=== PATIENT | female | born 1935 | race African-American/Black ===

== ENCOUNTER → 2016-04-12 | Outpatient (CLI) | payer OTHER ==
[~2016-04-12] MED LIST: 8 HOUR C500 MG PO; ACIDOPHILUS-PE1 EACH; ACIDOPHILUS1 EAC3 PO; ADULT LOW DOSE81 MG PO; ALLEGRA60 MG PO; AMLODIPINE BESY10 MG PO; APAP500; APAP500 PO; ASPIR-LOW81 MG PO; CATHFLO ACT2 MG/VIAL IV; CEPACOL SORE T1 EAC7 PO; CIPRO500 M1 PO; CIPRO500 MG PO; CLEOCIN HCL150 MG PO; CLOBETASOL EMOL15 GM TP; CLOPIDOGREL75 MG PO; CLOTRIMAZOLE 1%15 G1 TOP; CLOTRIMAZOLE-BE15 GM; COLACE 100 MG100 MG PO; COLACE100 MG PO; COZAAR 25 MG TA25 M1 PO; DARVOCET-N 1001 EACH PO; DOXYCYCLINE 10100 MG PO; DULCOLAX5 MG PO; DUONEB 2.5-0.5 M3 ML INH; FENTANYL PATCH75 MCG TP; FERRO-TIME325 MG PO; FLAGYL500 MG PO; FOLBIC RF TABL1 EACH PO; FOLIC ACID 40400 MCG; FOLIC ACID0.4 MG PO; FOLIC ACID1 MG PO; FUROSEMIDE 40 M40 M1 PO; GENTAMICIN 0.1%15 G2 TOP; GLEEVEC400 MG PO; IRON325 PO; KLOR-CON 1010 MEQ; KLOR-CON 1010 MEQ PO; LASIX 40 MG TAB40 M2 PO; LEVOTHYROXINE0.05 MG PO; LIDODERM 5%1 PATC1 TRANSDERM; LORATIDINE 10 M10 M1 PO; MIRALAX17 G1 PO; MUCINEX TA600 MG/TA1 PO; MULTIVITAMINS1 EAC5 PO; OMEGA XL; OPTIVE EYE DROP30 ML OP; OXYCODONE HCL 55 MG PO; PERCOCET PO; PLAVIX 75 MG TA75 M1 PO; PRAVACHOL20 MG PO; PRAVACHOL40 MG PO; PROBIOTIC1 EAC1 PO; PROCRIT 1010000 U/M1 SUBQ; ROBITUSSIN100 MG/53 PO; SANTYL OINTMENT30 G1 TOP; VANCOMYCIN750 MG/150 IV; VITAMIN B-122500 MCG PO; VITAMIN B-12500 MCG; VITAMIN B-12500 MCG PO; VITAMIN D1000 UNI1 PO; VITAMIN E400 UNIT PO; VITAMINC500; VOLTAREN GEL 1100 G1 TOP; ZINC CHELATE50 MG PO; ZINC OXIDE60 GM TP; ZINC50 MG; ZOSYN 2.25 GR2.25 GM IV
== END ==
LOC: HYPER 07:04
DX: I87.313 Chronic venous hypertension (idiopathic) with ulcer of bilateral lower extremity (principal); L97.811 Non-pressure chronic ulcer of other part of right lower leg limited to breakdown of skin; L97.822 Non-pressure chronic ulcer of other part of left lower leg with fat layer exposed; E11.51 Type 2 diabetes mellitus with diabetic peripheral angiopathy without gangrene; I87.2 Venous insufficiency (chronic) (peripheral); I10 Essential (primary) hypertension; Z87.891 Personal history of nicotine dependence; Z72.89 Other problems related to lifestyle

== ENCOUNTER → 2016-04-28 | Outpatient (CLI) | payer OTHER ==
[~2016-04-28] VITALS: Ht 167.6 cm; Wt 79.4 kg
--- NOTE | ~2016-04-28 | HPC ---
[facility] [place] [address] PAIN MANAGEMENT CONSULTATION Name: BARRETT MORILLO [id number] Admission: 04/28/16 Attend Phys: Arun Diaz DO Discharge: Date of : 34 Report #: [id number] THIS REPORT FOR: //name// CC: Garrett Diaz The patient is an 81-year-old female seen in consultation at request of Dr. Garrett La for evaluation of pain primarily in the right shoulder. The patient notes pain has been present since last summer. She denies antecedent trauma and overuse, has an aching, steady sensation, 0 pain today, though gets up to 7 occasionally. She notes she had fallen several years ago striking her right hand with compression on her shoulder. She may have had a fracture in the right wrist that was untreated. She does have pain in the wrist, but her primary point tenderness is in the right shoulder. She notes it seems to be exacerbated when she lies on the shoulder. She has limited range of motion in the shoulder, but no neuropathic symptoms are noted. Currently, the patient is taking some Percocet for pain, using a Lidoderm patch topically with some efficacy. REVIEW OF SYSTEMS: Complete review of systems was gone over with the patient. History dyslipidemia for which she takes pravastatin, hypertension for which she takes amlodipine and Lasix, hypothyroid for which she takes levothyroxine. Had colon resection in 2004 for a noncancerous lesion. PHYSICAL EXAMINATION: GENERAL: Reveals a 167 cm, 79 kg female, BMI is 28.3 kilograms per meter squared. VITAL SIGNS: Blood pressure is 149/60, pulse 77, respirations 16. NEUROLOGIC: Cranial 2-12 are grossly intact. HEENT: Pupils equal and reactive to light and accommodation. Extraocular muscles are intact. NECK: Cervical range of motion is full. MUSCULOSKELETAL: Upper extremity strength shows significant decrease in her right arm abduction perhaps about 45 to 50 degrees. Left arm is good to 90 degrees. Passive rotation of the arm is unremarkable. It does not appear to be a primary shoulder joint related. She is very tender over the right deltoid and trapezius. The right distal ulna does show some osseous hypertrophy and she has decreased range of motion of right thumb with thenar eminence atrophy. HEART: Regular rhythmical without murmur. LUNGS: Clear to auscultation. ABDOMEN: Unremarkable. EXTREMITIES: Gait is tandem. Lower extremity strength is generally symmetric. DIAGNOSTIC STUDIES: There are no radiographic diagnostic studies available for evaluation at this time. [address] [address] PAIN MANAGEMENT CONSULTATION Name: BARRETT MORILLO Room #: REG [facility]#: [id number] Admission: 04/28/16 Attend Phys: Arun Diaz DO Discharge: Date of : 34 Report #: [id number] IMPRESSION: Myofascial pain, right trapezius and deltoid, possible component of degenerative joint disease, right shoulder and the patient's comorbidities include hypertension and some chronic axial back pain. RECOMMENDATION: I will be happy to see the patient as needed for trigger point injections in the right trapezius and deltoid, although presently she is doing fairly well and does not require any interventional therapy at this time. Thank you for allowing me to participate in the patient's care. We will see her simply as needed. <ELECTRONICALLY SIGNED> By: Arun Diaz DO 05/01/16 1228 1629 0313 Arun Diaz DO /nt
[2016-04-28 11:26] VITALS: BP 149/60
== END | disposition home or self-care (01) ==
LOC: PAIN 04-24 07:07
DX: M79.1 Myalgia (principal); I10 Essential (primary) hypertension; E78.5 Hyperlipidemia, unspecified; E03.9 Hypothyroidism, unspecified; M54.9 Dorsalgia, unspecified; G89.29 Other chronic pain; Z90.49 Acquired absence of other specified parts of digestive tract; D50.9 Iron deficiency anemia, unspecified

== ENCOUNTER → 2016-07-19 | Outpatient (CLI) | payer OTHER | LOC: HYPER 07-04 15:18 | DX: I87.313 Chronic venous hypertension (idiopathic) with ulcer of bilateral lower extremity (principal); L97.811 Non-pressure chronic ulcer of other part of right lower leg limited to breakdown of skin; L97.822 Non-pressure chronic ulcer of other part of left lower leg with fat layer exposed; E11.622 Type 2 diabetes mellitus with other skin ulcer; E11.51 Type 2 diabetes mellitus with diabetic peripheral angiopathy without gangrene; E11.22 Type 2 diabetes mellitus with diabetic chronic kidney disease; I12.9 Hypertensive chronic kidney disease with stage 1 through stage 4 chronic kidney disease, or unspecified chronic kidney disease; N18.9 Chronic kidney disease, unspecified; I48.91 Unspecified atrial fibrillation; Z87.891 Personal history of nicotine dependence; Z72.89 Other problems related to lifestyle ==

== ENCOUNTER → 2016-08-09 | Outpatient (CLI) | payer OTHER | LOC: HYPER 07:05 | DX: I87.313 Chronic venous hypertension (idiopathic) with ulcer of bilateral lower extremity (principal); E11.622 Type 2 diabetes mellitus with other skin ulcer; L97.311 Non-pressure chronic ulcer of right ankle limited to breakdown of skin; L97.321 Non-pressure chronic ulcer of left ankle limited to breakdown of skin; E11.51 Type 2 diabetes mellitus with diabetic peripheral angiopathy without gangrene; R60.9 Edema, unspecified; B95.62 Methicillin resistant Staphylococcus aureus infection as the cause of diseases classified elsewhere; E11.69 Type 2 diabetes mellitus with other specified complication; M86.679 Other chronic osteomyelitis, unspecified ankle and foot; I12.9 Hypertensive chronic kidney disease with stage 1 through stage 4 chronic kidney disease, or unspecified chronic kidney disease; E11.22 Type 2 diabetes mellitus with diabetic chronic kidney disease; N18.9 Chronic kidney disease, unspecified; I48.91 Unspecified atrial fibrillation; F15.90 Other stimulant use, unspecified, uncomplicated; Z72.89 Other problems related to lifestyle; Z87.891 Personal history of nicotine dependence ==

== ENCOUNTER → 2016-09-04 | Outpatient (CLI) | payer OTHER | LOC: HYPER 07:08 | DX: I87.313 Chronic venous hypertension (idiopathic) with ulcer of bilateral lower extremity (principal); E11.622 Type 2 diabetes mellitus with other skin ulcer; L97.321 Non-pressure chronic ulcer of left ankle limited to breakdown of skin; L97.311 Non-pressure chronic ulcer of right ankle limited to breakdown of skin; I73.9 Peripheral vascular disease, unspecified; R60.9 Edema, unspecified; B95.62 Methicillin resistant Staphylococcus aureus infection as the cause of diseases classified elsewhere; E11.51 Type 2 diabetes mellitus with diabetic peripheral angiopathy without gangrene; E11.69 Type 2 diabetes mellitus with other specified complication; M86.8X7 Other osteomyelitis, ankle and foot; E11.22 Type 2 diabetes mellitus with diabetic chronic kidney disease; I12.9 Hypertensive chronic kidney disease with stage 1 through stage 4 chronic kidney disease, or unspecified chronic kidney disease; N18.9 Chronic kidney disease, unspecified; I48.91 Unspecified atrial fibrillation; Z87.891 Personal history of nicotine dependence; Z72.89 Other problems related to lifestyle ==

== ENCOUNTER → 2016-09-19 | Outpatient (CLI) | payer OTHER | LOC: HYPER 07:10 | DX: I87.313 Chronic venous hypertension (idiopathic) with ulcer of bilateral lower extremity (principal); L97.311 Non-pressure chronic ulcer of right ankle limited to breakdown of skin; L97.321 Non-pressure chronic ulcer of left ankle limited to breakdown of skin; E11.51 Type 2 diabetes mellitus with diabetic peripheral angiopathy without gangrene; I48.91 Unspecified atrial fibrillation; E11.22 Type 2 diabetes mellitus with diabetic chronic kidney disease; I12.9 Hypertensive chronic kidney disease with stage 1 through stage 4 chronic kidney disease, or unspecified chronic kidney disease; N18.9 Chronic kidney disease, unspecified; Z87.891 Personal history of nicotine dependence; Z86.14 Personal history of Methicillin resistant Staphylococcus aureus infection; Z72.89 Other problems related to lifestyle ==

== ENCOUNTER → 2016-11-02 | Outpatient (CLI) | payer OTHER | LOC: HYPER 10-09 06:58 | DX: I87.313 Chronic venous hypertension (idiopathic) with ulcer of bilateral lower extremity (principal); E11.622 Type 2 diabetes mellitus with other skin ulcer; L97.811 Non-pressure chronic ulcer of other part of right lower leg limited to breakdown of skin; L97.822 Non-pressure chronic ulcer of other part of left lower leg with fat layer exposed; E11.51 Type 2 diabetes mellitus with diabetic peripheral angiopathy without gangrene; R60.9 Edema, unspecified; B95.62 Methicillin resistant Staphylococcus aureus infection as the cause of diseases classified elsewhere; E11.69 Type 2 diabetes mellitus with other specified complication; M86.8X7 Other osteomyelitis, ankle and foot; I48.91 Unspecified atrial fibrillation; E11.22 Type 2 diabetes mellitus with diabetic chronic kidney disease; I12.9 Hypertensive chronic kidney disease with stage 1 through stage 4 chronic kidney disease, or unspecified chronic kidney disease; N18.9 Chronic kidney disease, unspecified; Z87.891 Personal history of nicotine dependence; Z72.89 Other problems related to lifestyle ==

== ENCOUNTER → 2016-11-21 | Outpatient (CLI) | payer OTHER | LOC: HYPER 07:05 | DX: I87.313 Chronic venous hypertension (idiopathic) with ulcer of bilateral lower extremity (principal); E11.622 Type 2 diabetes mellitus with other skin ulcer; L97.811 Non-pressure chronic ulcer of other part of right lower leg limited to breakdown of skin; L97.821 Non-pressure chronic ulcer of other part of left lower leg limited to breakdown of skin; E11.51 Type 2 diabetes mellitus with diabetic peripheral angiopathy without gangrene; R60.9 Edema, unspecified; B95.62 Methicillin resistant Staphylococcus aureus infection as the cause of diseases classified elsewhere; M86.8X7 Other osteomyelitis, ankle and foot; E11.22 Type 2 diabetes mellitus with diabetic chronic kidney disease; I12.9 Hypertensive chronic kidney disease with stage 1 through stage 4 chronic kidney disease, or unspecified chronic kidney disease; N18.9 Chronic kidney disease, unspecified; I48.91 Unspecified atrial fibrillation; Z87.891 Personal history of nicotine dependence; Z72.89 Other problems related to lifestyle ==

== ENCOUNTER → 2016-12-19 | Outpatient (CLI) | payer OTHER | LOC: HYPER 12-05 07:25 | DX: I87.313 Chronic venous hypertension (idiopathic) with ulcer of bilateral lower extremity (principal); E11.622 Type 2 diabetes mellitus with other skin ulcer; L97.821 Non-pressure chronic ulcer of other part of left lower leg limited to breakdown of skin; L97.822 Non-pressure chronic ulcer of other part of left lower leg with fat layer exposed; E11.51 Type 2 diabetes mellitus with diabetic peripheral angiopathy without gangrene; R60.9 Edema, unspecified; B95.62 Methicillin resistant Staphylococcus aureus infection as the cause of diseases classified elsewhere; Z87.891 Personal history of nicotine dependence; Z72.89 Other problems related to lifestyle ==

== ENCOUNTER → 2017-02-12 | Outpatient (CLI) | payer OTHER | LOC: HYPER 07:38 | DX: I87.313 Chronic venous hypertension (idiopathic) with ulcer of bilateral lower extremity (principal); L97.312 Non-pressure chronic ulcer of right ankle with fat layer exposed; L97.822 Non-pressure chronic ulcer of other part of left lower leg with fat layer exposed; L97.811 Non-pressure chronic ulcer of other part of right lower leg limited to breakdown of skin; E11.622 Type 2 diabetes mellitus with other skin ulcer; B95.62 Methicillin resistant Staphylococcus aureus infection as the cause of diseases classified elsewhere; E11.51 Type 2 diabetes mellitus with diabetic peripheral angiopathy without gangrene; E11.22 Type 2 diabetes mellitus with diabetic chronic kidney disease; I12.9 Hypertensive chronic kidney disease with stage 1 through stage 4 chronic kidney disease, or unspecified chronic kidney disease; N18.9 Chronic kidney disease, unspecified; I48.91 Unspecified atrial fibrillation; Z87.891 Personal history of nicotine dependence; Z72.89 Other problems related to lifestyle ==

== ENCOUNTER → 2017-03-27 | Outpatient (CLI) | payer OTHER | LOC: HYPER 07:09 | DX: I87.313 Chronic venous hypertension (idiopathic) with ulcer of bilateral lower extremity (principal); L97.312 Non-pressure chronic ulcer of right ankle with fat layer exposed; L97.322 Non-pressure chronic ulcer of left ankle with fat layer exposed; L97.522 Non-pressure chronic ulcer of other part of left foot with fat layer exposed; I73.9 Peripheral vascular disease, unspecified; E11.622 Type 2 diabetes mellitus with other skin ulcer; E11.621 Type 2 diabetes mellitus with foot ulcer; E11.69 Type 2 diabetes mellitus with other specified complication; M86.679 Other chronic osteomyelitis, unspecified ankle and foot; E11.22 Type 2 diabetes mellitus with diabetic chronic kidney disease; I12.9 Hypertensive chronic kidney disease with stage 1 through stage 4 chronic kidney disease, or unspecified chronic kidney disease; N18.9 Chronic kidney disease, unspecified; I48.91 Unspecified atrial fibrillation; Z87.891 Personal history of nicotine dependence; Z72.89 Other problems related to lifestyle ==

== ENCOUNTER → 2017-04-17 | Outpatient (CLI) | payer OTHER ==
[~2017-04-17] MED LIST changes: +CALCIUM500 MG PO; +ENOXAPARIN30 MG/0.1 SUBQ; +HYDROCODONE-AP1 EAC6 PO; +LASIX 20 MG TAB20 MG PO; +NOVOLOG100 UNIT/1 SUBQ; +PREDNISONE 20 M20 M1 PO; +SOLU-MEDRO125 MG/23 IV PUSH; +SYNTHROID50 MCG PO; +TORSEMIDE20 MG PO; +TRAMADOL 50 MG50 MG PO; +TYLENOL EXTRA500 MG PO; +VANCOMYCIN HCL 11 G2 IV
== END ==
LOC: HYPER 04-12 06:39
DX: I87.313 Chronic venous hypertension (idiopathic) with ulcer of bilateral lower extremity (principal); L97.312 Non-pressure chronic ulcer of right ankle with fat layer exposed; L97.322 Non-pressure chronic ulcer of left ankle with fat layer exposed; L97.522 Non-pressure chronic ulcer of other part of left foot with fat layer exposed; E11.622 Type 2 diabetes mellitus with other skin ulcer; E11.621 Type 2 diabetes mellitus with foot ulcer; E11.51 Type 2 diabetes mellitus with diabetic peripheral angiopathy without gangrene; E11.69 Type 2 diabetes mellitus with other specified complication; M86.679 Other chronic osteomyelitis, unspecified ankle and foot; E11.22 Type 2 diabetes mellitus with diabetic chronic kidney disease; I12.9 Hypertensive chronic kidney disease with stage 1 through stage 4 chronic kidney disease, or unspecified chronic kidney disease; N18.9 Chronic kidney disease, unspecified; I48.91 Unspecified atrial fibrillation; Z87.891 Personal history of nicotine dependence; Z72.89 Other problems related to lifestyle

== ENCOUNTER → 2017-05-09 | Outpatient (CLI) | payer OTHER | LOC: HYPER 05-02 06:48 | DX: E11.622 Type 2 diabetes mellitus with other skin ulcer (principal); I87.313 Chronic venous hypertension (idiopathic) with ulcer of bilateral lower extremity; L97.822 Non-pressure chronic ulcer of other part of left lower leg with fat layer exposed; L97.312 Non-pressure chronic ulcer of right ankle with fat layer exposed; L97.321 Non-pressure chronic ulcer of left ankle limited to breakdown of skin; E11.621 Type 2 diabetes mellitus with foot ulcer; L97.521 Non-pressure chronic ulcer of other part of left foot limited to breakdown of skin; E11.51 Type 2 diabetes mellitus with diabetic peripheral angiopathy without gangrene; E11.22 Type 2 diabetes mellitus with diabetic chronic kidney disease; I12.9 Hypertensive chronic kidney disease with stage 1 through stage 4 chronic kidney disease, or unspecified chronic kidney disease; N18.9 Chronic kidney disease, unspecified; Z87.891 Personal history of nicotine dependence; Z72.89 Other problems related to lifestyle ==

== ENCOUNTER → 2017-06-06 | Outpatient (CLI) | payer OTHER | LOC: HYPER 06:59 | DX: E11.622 Type 2 diabetes mellitus with other skin ulcer (principal); L97.321 Non-pressure chronic ulcer of left ankle limited to breakdown of skin; L97.312 Non-pressure chronic ulcer of right ankle with fat layer exposed; L97.822 Non-pressure chronic ulcer of other part of left lower leg with fat layer exposed; I87.313 Chronic venous hypertension (idiopathic) with ulcer of bilateral lower extremity; E11.51 Type 2 diabetes mellitus with diabetic peripheral angiopathy without gangrene; I87.2 Venous insufficiency (chronic) (peripheral); I12.9 Hypertensive chronic kidney disease with stage 1 through stage 4 chronic kidney disease, or unspecified chronic kidney disease; N18.9 Chronic kidney disease, unspecified; I48.91 Unspecified atrial fibrillation; Z87.891 Personal history of nicotine dependence; Z72.89 Other problems related to lifestyle ==

== ENCOUNTER 2017-06-12 15:12 | Inpatient (IN) | payer OTHER ==
[~2017-06-12] VITALS: Ht 167.6 cm; Wt 77.7 kg
--- NOTE | ~2017-06-12 | O ---
[facility] [place] [address] OPERATIVE REPORT Name: BARRETT MORILLO Room #: 442-P [facility] IN .R.#: [id number] Admission: 06/12/17 Attend Phys: Garrett La MD Discharge: Date of : 34 Report #: [id number] THIS REPORT FOR: //name// CC: Garrett La DATE OF SERVICE: 06/22/2017 PREOPERATIVE DIAGNOSES: 1. Chronic bilateral lower extremity venous stasis ulcerations. 2. Severe peripheral vascular disease. 3. Diabetes mellitus. 4. Severe protein calorie malnutrition. 5. Generalized debility. POSTOPERATIVE DIAGNOSES: 1. Chronic bilateral lower extremity venous stasis ulcerations. 2. Severe peripheral vascular disease. 3. Diabetes mellitus. 4. Severe protein calorie malnutrition. 5. Generalized debility. PROCEDURES PERFORMED: 1. Excisional debridement of skin, subcutaneous tissue, muscle and bone of the left lower extremity, chronic venous stasis ulceration ultimately measuring 22 x 18 cm in dimension (396 square centimeters). Preoperative and postoperative wound measurements were similar as the overall dimensions of the wound did not change substantially. 2. Excisional debridement of skin, subcutaneous tissue, muscle and bone of a right lower extremity chronic venous stasis ulceration ultimately measuring 20 x 19 cm in dimension (380 square centimeters). Preoperative wound measurements were similar as the overall dimensions of the wound did not change substantially. 3. Total surface area of debrided wounds all to bone equals 776 square centimeters. 4. Application of an extracellular matrix tissue grafting to the bilateral lower extremity wounds, totaling 776 square centimeters. SURGEON: Tracie Cook MD TIME CLOCK REPAIRER: JAMES Jones. ANESTHESIA: General endotracheal anesthesia. ESTIMATED BLOOD LOSS: Minimal (less than 10 mL). COMPLICATIONS: None appreciated. [facility] [address] [place] [address] OPERATIVE REPORT Name: BARRETT MORILLO Room #: 442-P [facility] IN ..#: [id number] Admission: 06/12/17 Attend Phys: Garrett La MD Discharge: Date of : 34 Report #: [id number] SPECIMENS: All excised tissue to pathology. INDICATIONS: The patient is an 82-year-old -[place] female with the above-mentioned medical issues, who has dealt with chronic venous stasis ulcerations of the bilateral lower extremities for several years. The patient was admitted for worsening pain and erythema with exudative slough due to early cellulitis and after appropriate elevation of her legs and IV antibiotic therapy, we proceeded with debridement of her lower extremity wounds 1 week ago utilizing [employer] ultrasonic debridement tool. The patient's wounds have been undergoing aggressive local wound care and she has been on antibiotic therapy this time; however, she did develop worsening congestive heart failure for which she has been undergoing aggressive diuresis and cardiology evaluation. The patient has now been cleared by primary care physician as well as Cardiology to proceed back with repeat debridement to remove all remaining exudative slough and biofilm and to proceed forward with application of an extracellular matrix tissue grafting to the bilateral lower extremity wounds to hopefully attain long-term wound healing of these chronic ulcerations. DESCRIPTION OF PROCEDURE: After explaining the risks, benefits, alternatives of the procedure with the patient in detail in the preoperative holding area and obtaining written consent, the patient was brought to the operating room and placed supine on the operating room table. After conducting a thorough timeout procedure, verifying correct patient and procedure, the patient was given general endotracheal anesthesia. No SCDs were utilized as her wounds are of the bilateral lower extremities in nature. The patient is already on an inpatient regimen of IV antibiotic therapy, which is all in line with the SCIP protocol. The patient's bilateral lower extremities were now prepped and draped circumferentially in standard surgical sterile fashion from the mid thigh to the toes. A combination of electrocautery and [employer] ultrasonic debridement tool was now used to remove all remaining exudative slough and biofilm throughout the bed of each lower extremity wound. All nonviable tissue was removed down to healthy vascularized granulation tissue throughout the bed of each wound that bled. Pressure was held on each wound, so as not to use electrocautery for hemostasis and after 10 minutes, we had complete hemostasis with a beefy red raw, soupy wound bed as desired. Measurements were as delineated above. I now selected [employer] extracellular tissue grafting using four pieces of 8 x 8 cm and 1 piece of 6 x 6 cm mesh to amalgamate together and construct total surface area coverage of 776 square cm overlying the entirety of each wound. These were placed in piecemeal fashion and stapled to the surrounding dermis as well as using several sutures of 3-0 Vicryl throughout the innermost portion of the meshes to hold them in close approximation with the wound bed throughout. Hemostasis was assured and then Adaptic nonadherent dressings were placed over each of the grafts and stapled to the surrounding skin as well. Xeroform gauze was then placed over the Adaptic and light fluffs and ABDs were placed as well as a circumferential Kerlix wrap placed loosely around from the toes to the [facility] [address] [place] [address] OPERATIVE REPORT Name: BARRETT MORILLO Room #: 442-P [facility] IN M.R.#: [id number] Admission: 06/12/17 Attend Phys: Garrett La MD Discharge: Date of : 34 Report #: [id number] knee. At the end of the procedure, all instrument, needle and sponge counts were correct. The patient tolerated the procedure without incident, was awakened in the operating room and transitioned to the recovery room in stable condition with no apparent complications. <ELECTRONICALLY SIGNED> By: Tracie Cook MD, FACS 06/23/17 0837 1608 1639 Tracie Cook MD, FACS /nt
--- NOTE | ~2017-06-12 | HC ---
[facility] [place] [address] CONSULTATION Name: BARRETT MORILLO Room #: 442-P ADM IN M.R.#: [id number] Admission: 06/12/17 Attend Phys: Garrett La MD Discharge: Date of : 34 Report #: [id number] THIS REPORT FOR: //name// CC: Garrett La REASON FOR CONSULTATION: I was asked to evaluate concerning bilateral lower extremity venous stasis ulcers with secondary infection. HISTORY OF PRESENT ILLNESS: The patient is an 82-year-old with longstanding peripheral vascular disease, diabetes and renal insufficiency. She has had chronic lower extremity ulcers for several years. She presents now for further evaluation and surgical intervention. She has had no fever, chills or sweats. Pain is reasonably controlled. She has been utilizing compression wraps. She was admitted yesterday and placed on IV antibiotic therapy including Zosyn. REVIEW OF SYSTEMS: Notes no cough or sputum production. No nausea, vomiting or diarrhea. No dysuria or frequency. 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 ALLERGIES: Reports PENICILLIN causes itching, but tolerates Zosyn without issue. MEDICATIONS: As noted on her MAR, which were reviewed. FAMILY HISTORY AND SOCIAL HISTORY: Noncontributory. REVIEW OF SYSTEMS: As noted above. PHYSICAL EXAMINATION: VITAL SIGNS: Afebrile and hemodynamically stable. GENERAL: She was alert and cooperative and pleasant with no acute distress. HEENT: Unremarkable. CHEST: Clear. HEART: Regular. ABDOMEN: Soft and nontender. No appreciable mass. EXTREMITIES: Lower extremities were TONNY wrapped. They have just been changed by Wound Care Service. She does have chronic venous stasis changes evident in her feet. Chronic lymphedema changes as well. Sensation in her toes was adequate. LABORATORY STUDIES: Sodium 143, potassium 4, bicarbonate 21, creatinine 2.2. Liver function test normal. Hemoglobin 8.7, platelet count 320,000, white count [address] [address] CONSULTATION Name: BARRETT MORILLO Room #: 442-P ADM IN .R.#: [id number] Admission: 06/12/17 Attend Phys: Garrett La MD Discharge: Date of : 34 Report #: [id number] 6.9. Urinalysis unremarkable. Chest x-ray, basilar atelectasis. IMPRESSION: Chronic venous stasis and arterial insufficiency ulcers to both lower extremities with secondary infection. She is scheduled to have surgery hopefully tomorrow for further debridement and cultures. PLAN: Would recommend continuing her antibiotic coverage with Zosyn. We will screen for MRSA. We will adjust her antibiotics for her renal insufficiency and await surgical findings and determine plan of care as far as wound care. <ELECTRONICALLY SIGNED> By: Valdez Mark MD 06/14/17 0928 1443 1838 Valdez Mark MD /nt
--- NOTE | ~2017-06-12 | H ---
[facility] [place] [address] HISTORY AND PHYSICAL Name: BARRETT MORILLO Room #: 442-P ADM IN M.R.#: [id number] Admission: 06/12/17 Attend Phys: Garrett La MD Discharge: Date of : 34 Report #: [id number] THIS REPORT FOR: //name// CC: Garrett La DATE OF SERVICE: 06/12/2017 CHIEF COMPLAINT: Chronically infected ulcer wounds of both legs. HISTORY OF PRESENT ILLNESS: The patient has had chronically infected circumferential ulcers of both lower legs for many years. Currently, they have been suppurative and chronically infected and have not been healing. Her entry specialists, Dr. Mark Queen feels that they would benefit from extensive debridement in the operating room under anesthesia with the placement of an extracellular matrix graft to improve wound healing. She has been admitted for intravenous antibiotics before this procedure is done, and the procedure has been scheduled for tomorrow. PAST MEDICAL HISTORY: Significant for extensive chronic venous stasis ulcers of both lower extremities. She also has peripheral vascular disease to the lower extremities. She has had prior MRSA infections in her legs as well as Enterococcus faecalis, Pseudomonas, and several other infections. She chronically attends the [facility]. Her last hospital stay was in 05/2015 for sepsis with fever and chills with marked bandemia caused by her leg ulcers. She was transferred to [facility] to finish antibiotics and to continue with lavage of her legs. She was previously admitted 01/19/2015 to 01/27/2015. OTHER PAST MEDICAL HISTORY: She has chronic profound iron deficiency anemia and takes iron. An EGD and colonoscopy were performed for bleeding sources and were negative. She has moderately severe left-sided diverticulosis coli and an old PEG tube site in the stomach was found as well as [id number] hiatal hernia. She has a GIST tumor that has been treated by Dr. Ivan Roldan in [facility]. There is a change in the community agency that provided transportation for her to cross the state line from [place] to Dr. Roldan's office in [place], which subsequently no longer provided that service for her. She has not taken her medication for the GIST tumor for about the past [address] Kenneth Cramer, also at the [facility], did extend an appointment for her at his office on but she canceled and never did actually make an appointment. 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 She has chronic B12 deficiency, anemia of chronic disease with low erythropoietin level, hypertension, hyperlipidemia, poor venous access. [facility] [address] [place] [address] HISTORY AND PHYSICAL Name: YISELBARRETT Room #: 442-P [facility] IN M.R.#: [id number] Admission: 06/12/17 Attend Phys: Garrett La MD Discharge: Date of : 34 Report #: [id number] She has peripheral vascular disease with several mesenteric vessel stenoses for which she has received a stent here at [facility]. 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 It was a stage 2 at the time. Lymphovascular space invasion was present then. She has chronic kidney disease. She has diet-controlled type 2 diabetes. Coronary artery disease. CURRENT MEDICATIONS: Pravastatin 40 mg daily, levothyroxine 0.05 mg daily, amlodipine 10 mg daily, daily vitamins with iron, B12 500 mcg daily, calcium 600 mg daily, stool softener and bisacodyl laxative daily. Oxycodone 5/325 was prescribed until the last several months after urine drug screens showed her not to be actively taking the medication. ALLERGIES: PENICILLIN CAUSES ITCHING. SOCIAL HISTORY: She lives in an independent living apartment. She has extensive elementary school social worker and visiting nurses to help change her dressings. She does not drink alcohol nor smoke. REVIEW OF SYSTEMS: Negative except for the HPI above. OBJECTIVE: GENERAL: Exam shows an 82-year-old female, who appears younger than her stated age. HEENT: Unremarkable. LUNGS: Clear. CARDIOVASCULAR: Heart tones are normal and rhythm is regular. ABDOMEN: Soft, nontender, without hepatosplenomegaly or masses. EXTREMITIES: Legs are wrapped with dressings covered with Julio wraps. There is a faint foul odor present. The skin of the toes appears intact. Capillary refill was mildly diminished. Sensation to light touch is intact, and the patient is ticklish. NEUROLOGIC: No focal motor deficits were identified. ASSESSMENT: 1. Chronic venous insufficiency and arterial insufficiency ulcers of both lower legs with progressive worsening in terms of exudate and sloughing and infection. 2. Hypertension. 3. Hyperlipidemia. 4. Hypothyroidism. 5. GIST tumor -- she has been off of her Gleevec for approximately 2 years now [facility] [address] [place] [address] HISTORY AND PHYSICAL Name: BARRETT MORILLO Room #: 442-P [facility] IN M.R.#: [id number] Admission: 06/12/17 Attend Phys: Garrett La MD Discharge: Date of : 34 Report #: [id number] and has not completed efforts to get her established with a different medical oncologist. 6. Chronic iron deficiency anemia. 7. Chronic kidney disease, stage 3-4. 8. Type 2 diabetes, diet controlled. 9. Gastroesophageal reflux disease. 10. Hypertension. 11. Microproteinuria. ADDITIONAL MEDICATIONS: Lidocaine patches. PLAN: She is admitted for intravenous antibiotics. She will be seen in consultation by the Infectious Disease service. Meropenem 1 g every 8 hours initially for treatment. Despite report of a penicillin allergy, she has tolerated Zosyn well in the past. She is to undergo general anesthesia with excisional debridement of her legs and application of a matrix gel graft type dressing. By: 30 02 Garrett La MD /nt
--- NOTE | ~2017-06-12 | EKG ---
[address] [address] ELECTROCARDIOGRAM REPORT Name: BARRETT MORILLO Room #: 442- ADM IN M.R.#: [id number] Admission: 06/12/17 Attend Phys: Garrett La MD Discharge: Date of : 34 Report #: [id number] THIS REPORT FOR: //name// [facility] Test Date: 2017-06-18 Test Time: 11:10:25 Pat Name: BARRETT MORILLO Department: Room: 442 Gender: F [employer] Operator: Raulito LANTIGUA : 1935 Requested By: Garrett La Order Number: [id number] MD: Bert Nick Measurements Intervals Cost Rate: 82 P: 50 AK: 176 QRS: 64 QRSD: 89 T: 46 QT: 365 QTc: 427 Interpretive Statements Sinus rhythm No significant abnormality Compared to ECG 06/12/2017 20:41:07 No significant changes Electronically Signed On 06-19-2017 10:19:27 CDT by Bert Nick [email or web address] <ELECTRONICALLY SIGNED> By: Bert Nick MD, [facility] 06/19/17 1019 1110 09 Bert Nick MD, FACC /EPI
--- NOTE | ~2017-06-12 | EKG ---
[address] [address] ELECTROCARDIOGRAM REPORT Name: BARRETT MORILLO Room #: 442- ADM IN M.R.#: [id number] Admission: 06/12/17 Attend Phys: Garrett La MD Discharge: Date of : 34 Report #: [id number] THIS REPORT FOR: //name// [facility] Test Date: 2017-06-12 Test Time: 20:41:07 Pat Name: BARRETT MORILLO Department: Room: 442 Gender: F Sanforizer: Lizz ROJAS : 1935 Requested By: Garrett La Order Number: [id number] MD: Bert Nick Measurements Intervals [place] Rate: 76 P: 38 GA: 206 QRS: 37 QRSD: 85 T: 20 QT: 372 QTc: 419 Interpretive Statements Sinus rhythm No significant abnormality Compared to ECG 12/15/2013 21:03:24 T-wave abnormality no longer present Electronically Signed On 06-13-2017 8:11:11 CDT by Bert Nick [email or web address] <ELECTRONICALLY SIGNED> By: Bert Nick MD, [facility] 06/13/17 0811 40 40 Bert Nick MD, FAC /EPI
--- NOTE | ~2017-06-12 | HC ---
[facility] [place] [address] CONSULTATION Name: BARRETT MORILLO Room #: 442-P [facility] IN M.R.#: [id number] Admission: 06/12/17 Attend Phys: Garrett La MD Discharge: Date of : 34 Report #: [id number] THIS REPORT FOR: //name// CC: Garrett La DATE OF SERVICE: 06/12/2017 REFERRING PROVIDER: Mark Queen MD REASON FOR CONSULTATION: Bilateral lower extremity venous stasis wounds. HISTORY OF PRESENT ILLNESS: The patient is an 82-year-old Tajik female with chronic venous stasis changes to the bilateral lower extremities, who has had worsening pain and erythema with exudative slough to her wounds over the recent past. The patient is being admitted for cellulitis of her wounds and I am asked to evaluate as she will necessitate excisional debridement of these wounds with placement of an extracellular matrix graft for hopeful wound healing. 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 HOME MEDICATIONS: Amlodipine, Dulcolax, calcium, vitamin B12, Synthroid, Lidoderm patch, multivitamin, Percocet, and pravastatin. ALLERGIES: LATEX causes a rash, but no allergies to medications. FAMILY HISTORY: Reviewed and noncontributory. SOCIAL HISTORY: The patient has alcohol on holidays just occasionally and states she does not use tobacco or illicit drugs. REVIEW OF SYSTEMS: GENERAL: The patient denies nocturnal fevers or chills. HEENT: No change in vision or change in hearing. NECK: No swelling or difficulty swallowing. HEART: No chest pain or palpitations. LUNGS: No cough or shortness of breath. ABDOMEN: No nausea, no vomiting. GENITOURINARY: No dysuria or hematuria. ENDOCRINE: No polyuria or polydipsia. HEMATOLOGIC: No history of bleeding or easy bruising. EXTREMITIES: No history of weakness or limited range of motion. NEUROLOGIC: No history of syncope or near syncopal episodes. SKIN AND INTEGUMENT: Chronic bilateral lower extremity venous stasis [facility] [address] [place] [address] CONSULTATION Name: BARRETT MORILLO Room #: 442-P [facility] IN ..#: [id number] Admission: 06/12/17 Attend Phys: Garrett La MD Discharge: Date of : 34 Report #: [id number] ulcerations. PHYSICAL EXAMINATION: VITAL SIGNS: Temperature 97.6, pulse 80, respirations 18, blood pressure 185/84, she stands 5 feet 6 inches tall and weighs 165 pounds. GENERAL: Alert and oriented, in no acute distress. HEENT: Normocephalic, atraumatic. Pupils are equal, round, and reactive to light. NECK: Supple, without lymphadenopathy. Trachea midline. HEART: Regular rate and rhythm. LUNGS: Clear to auscultation bilaterally. ABDOMEN: Soft, nontender, nondistended. GENITOURINARY: Normal external female genitalia. EXTREMITIES: No clubbing, cyanosis or edema. NEUROLOGIC: Cranial nerves 2-12 are grossly intact. PSYCHIATRIC: Normal mood and affect. SKIN AND INTEGUMENT: Bilateral lower extremity venous stasis ulcers are present with slough circumferential and mild warmth as well as likely early cellulitis with very minimal erythema. LABORATORY AND X-RAY DATA: None currently, CBC and BMP are currently in process. ASSESSMENT AND PLAN: An 82-year-old -Tajik female with longstanding bilateral lower extremity venous stasis ulcerations as well as multiple other medical problems as delineated above, who is admitted for early cellulitis of the wounds necessitating IV antibiotics as well as aggressive local wound care. I will plan debridement with Misonix to remove all nonviable tissue and hopefully placement of an extracellular tissue matrix graft at some point in the near future. However, in the immediate future, she should be initiated on IV fluids, broad spectrum antibiotics and all other initial points of care per her primary care physician, Dr. La. Dr. Queen will manage her wound care throughout with the exception of at the time of surgery. I sincerely appreciate this consult. I will follow closely and leave any further recommendations in the patient's chart as appropriate with plans to proceed to the operating room within the next 1-3 days. <ELECTRONICALLY SIGNED> By: Tracie Cook MD, FACS 06/13/17 1045 1732 [id number] Tracie Cook MD, FACS /nt
--- NOTE | ~2017-06-12 | 2DMMODE ---
[facility] [address] [place] [address] 2 D/M-MODE ECHOCARDIOGRAM Name: BARRETT MORILLO Room #: 442-P [facility] IN M.R.#: [id number] Admission: 06/12/17 Attend Phys: Garrett La, Discharge: Date of : 34 Date of Service: 06/18/17 1209 Report #: [id number] THIS REPORT FOR: //name// APPROVED REPORT Study performed: 06/18/2017 10:53:47 EXAM: Comprehensive 2D, Doppler, and color-flow Echocardiogram Patient Location: Bedside Room #: 442 Status: routine BSA: 1.84 HR: 80 bpm BP: 155/62 mmHg Other Information Study Quality: Good Indications Diabetes CAD Hypertension/HDD R/O effusion 2D Dimensions RVDd: 37.41 mm LVEF(%): 60.02 (>50%) IVSd: 14.80 (7-11mm) LVOT Diam: 21.21 (18-24mm) LVDd: 45.19 mm PWd: 11.96 (7-11mm) Ascending Ao: 31.03 (22-36mm) LVDs: 30.80 (25-40mm) Aortic Root: 31.13 mm IVC: 25.00 mm Degroot's LVEF: 60.02 % Volumes Left Atrial Volume (Systole) Single Plane 4CH: 88.96 mL Single Plane 2CH: 65.92 mL LA ESV Index: 44.00 mL/m2 Aortic Valve AoV Peak Fan.: 2.51 m/s AO Peak Gr.: 25.27 mmHg LVOT Max P.81 mmHg AO Mean Gr.: 11.99 mmHg LVOT Mean P.95 mmHg AO V2 Mean: 1.63 m/s LVOT Max V: 1.48 m/s AO V2 VTI: 52.99 cm LVOT Mean V: 0.91 m/s NAVI (VTI): 2.33 cm2 LVOT V1 VTI: 35.02 cm [facility] [address] [place] [address] 2 D/M-MODE ECHOCARDIOGRAM Name: BARRETT MORILLO Room #: 442-P [facility] IN ..#: [id number] Admission: 06/12/17 Attend Phys: Garrett La, Discharge: Date of : 34 Date of Service: 06/18/17 1209 Report #: [id number] NAVI Vmax: 2.08 cm2 SV (LVOT): 123.66 mL Mitral Valve E/A Ratio: 0.8 MV Decel. Time: 273.40 ms MV E Max Fan.: 1.21 m/s MV A Fan.: 1.59 m/s MV PHT: 79.29 ms IVRT: 55.36 ms Pulmonary Valve PV Peak Fan.: 1.16 m/s PV Peak Gr.: 5.43 mmHg Pulmonary Vein P Vein S: 0.79 m/s P Vein A: 0.33 m/s P Vein D: 0.53 m/s P Vein A Dur.: 128.0 msec P Vein S/D Ratio: 1.49 Tricuspid Valve TR Peak Fan.: 2.99 m/s RAP Estimate: 10.00 mmHg TR Peak Gr.: 35.86 mmHg PA Pressure: 46.00 mmHg Left Ventricle The left ventricle is normal size. Mild concentric left ventricular hypertrophy. The left ventricular systolic function is normal. The left ventricular ejection fraction is within the normal range. LVEF is 60-65%. Mild diastolic dysfunction is present (impaired relaxation pattern). Right Ventricle The right ventricle is normal size. The right ventricular systolic function is normal. Atria Left atrium is moderately dilated. Right atrium is mildly dilated. Aortic Valve Aortic valve is sclerotic. Trace aortic regurgitation. Mitral Valve Mild mitral annular calcification. Mild mitral regurgitation. No evidence of mitral valve stenosis. [facility] [address] [place] [address] 2 D/M-MODE ECHOCARDIOGRAM Name: BARRETT MORILLO Room #: 442-P [facility] M.R.#: [id number] Admission: 06/12/17 Attend Phys: Garrett La, Discharge: Date of : 34 Date of Service: 06/18/17 1209 Report #: [id number] Tricuspid Valve The tricuspid valve is normal in structure. Trace tricuspid regurgitation. PAP is estimated at 46 mmHg. Pulmonic Valve The pulmonary valve is normal in structure. Mild pulmonic regurgitation. Great Vessels The aortic root is normal in size. IVC is dilated and collapses >50% with inspiration. Pericardium There is no pericardial effusion. <Conclusion> The left ventricle is normal size. Mild concentric left ventricular hypertrophy. The left ventricular systolic function is normal. Mild diastolic dysfunction is present (impaired relaxation pattern). The right ventricle is normal size. Left atrium is moderately dilated. Right atrium is mildly dilated. Aortic valve is sclerotic. Mild mitral annular calcification. Mild mitral regurgitation. Trace tricuspid regurgitation. PAP is estimated at 46 mmHg. <ELECTRONICALLY SIGNED> By: Pastor Monterroso MD 06/18/171208 08 08 Pastor Monterroso MD /INF
--- NOTE | ~2017-06-12 | HC ---
[facility] [place] [address] CONSULTATION Name: BARRETT MORILLO Room #: 458-P [facility] IN ..#: [id number] Admission: 06/12/17 Attend Phys: Garrett La MD Discharge: Date of : 34 Report #: [id number] THIS REPORT FOR: //name// CC: Garrett La REASON FOR CONSULTATION: Acute kidney injury. HISTORY OF PRESENT ILLNESS: This is a very complicated 82-year-old with extensive past medical history including and not limited to: 1. Chronic kidney disease. 2. Hypertension. 3. Baseline creatinine of around 2.4 as of 2016. She also suffered from chronic venous stasis ulcers. She was admitted for further evaluation and management. On presentation to the emergency room, she was found to have a creatinine of 2.4, which was around her baseline. She was initiated on vancomycin and Zosyn. This was associated with an abrupt onset and acute kidney injury with a creatinine peaking at 3.7. I am being consulted to manage her acute kidney injury. PAST MEDICAL HISTORY: 1. MRSA infection in the past. 2. Chronic venous stasis changes. 3. Peripheral vascular disease. 4. Anemia. 5. Chronic kidney disease. 6. GIST tumor. 7. Diverticulosis. 8. Hiatal hernia. 9. Hyperlipidemia. 10. 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 MEDICATIONS: 1. Pravastatin. 2. Levothyroxine. 3. Calcium. 4. Amlodipine. ALLERGIES: PENICILLIN. SOCIAL HISTORY: She lives in an independent living apartment. No drug or alcohol abuse. REVIEW OF SYSTEMS: GENERAL: No fever or chills. CARDIOVASCULAR: Significant for lower extremity edema. PULMONARY: No cough or hemoptysis. GASTROINTESTINAL: No nausea or vomiting. [facility] [address] [place] [address] CONSULTATION Name: BARRETT MORILLO Room #: 458-P [facility] IN .R.#: [id number] Admission: 06/12/17 Attend Phys: Garrett La MD Discharge: Date of : 34 Report #: [id number] GENITOURINARY: No frequency, no urgency. SKIN: As per the history of present illness. PHYSICAL EXAMINATION: VITAL SIGNS: Temperature 36.6, blood pressure 140/58. HEAD AND NECK: No jugular venous distention. CHEST: Clear to auscultation bilaterally. CARDIOVASCULAR: Regular with no rub. ABDOMEN: Soft, nontender. LOWER EXTREMITIES: Extensive bilateral lower extremity venous stasis changes with extensive discolorations, dressing applied. LABORATORY VALUES: Reviewed. Creatinine is down to 3.5. Vancomycin was up to 28 yesterday. Anemia with a hemoglobin of 8.6. Cultures are pending. ASSESSMENT, IMPRESSION, AND PLAN: 1. Acute kidney injury. 2. Chronic kidney disease with a baseline creatinine of around 2. 3. Extensive peripheral vascular disease. 4. Gastrointestinal stroma tumor. 5. Extensive venous stasis changes. 6. Her acute kidney injury is well explained by the combination of vancomycin and Zosyn and elevated vancomycin level. At this point, I would hold the vancomycin. 7. Redose only if the level is less than 20. 8. Avoid nephrotoxins. 9. Avoid diuresis. 10. Continue with the IV fluid. 11. I will continue to follow along. <ELECTRONICALLY SIGNED> By: Deanne Jimenez MD 07/02/17 0636 0819 1022 Deanne Jimenez MD /nt
--- NOTE | ~2017-06-12 | HC ---
[facility] [place] [address] CONSULTATION Name: BARRETT MORILLO Room #: 442-P [facility] IN ..#: [id number] Admission: 06/12/17 Attend Phys: Garrett La MD Discharge: Date of : 34 Report #: [id number] THIS REPORT FOR: //name// CC: Garrett La MD DATE OF SERVICE: 06/21/2017 PULMONARY CONSULTATION REFERRAL PHYSICIAN: Dr. Garrett La. REASON FOR REFERRAL: Persistent dyspnea, persistent infiltrates. HISTORY OF PRESENT ILLNESS: The patient is an 82-year-old -[place] female who was admitted on June 12 with chronically infected ulcer wounds of both lower extremities. On admission, chest x-ray revealed bilateral interstitial infiltrates. She was felt to be in heart failure. She has been diuresed. However, despite treatment, the patient persistently had trouble with dyspnea, occasional bronchospasm. Chest x-ray shows persistent infiltrates. For that reason, a pulmonary consultation was requested. Presently, she states that she feels a little better. She says she has smoked in the past, but quit many years ago. She does not recall whether she was told that she had COPD. Otherwise, denies any chest pain, productive cough, hemoptysis, nausea, vomiting, diarrhea. PAST MEDICAL HISTORY: Notable for chronic stasis ulcers involving both lower extremities, peripheral vascular disease, history of MRSA infections in the past along with pseudomonas, enterococcal faecalis, iron deficiency anemia, diverticulosis, hiatal hernia, history of GIST tumor and previously treated at [facility], hypertension, hyperlipidemia, chronic disease, diabetes mellitus type 2, coronary artery disease. ALLERGIES: PENICILLIN, WHICH CAUSES PRURITUS. MEDICATIONS: Lists are reviewed. It is in the MAR. FAMILY HISTORY: Noncontributory. SOCIAL HISTORY: She lives independently in an apartment. She has visiting nurses and manager social who come to check in on her. REVIEW OF SYSTEMS: As mentioned above, but otherwise 10-point system reviewed [facility] [address] [place] [address] CONSULTATION Name: BARRETT MORILLO Room #: 442-P [facility] IN [facility].#: [id number] Admission: 06/12/17 Attend Phys: Garrett La MD Discharge: Date of : 34 Report #: [id number] and negative. PHYSICAL EXAMINATION: GENERAL: She is awake, alert, in no apparent distress. VITAL SIGNS: Temperature is 98 degrees Fahrenheit, pulse is 88, respiratory rate is 20, blood pressure is 150/63 mmHg, saturation 94%. HEENT: Normocephalic, atraumatic. NECK: Supple without any lymphadenopathy or thyromegaly. CHEST: Breath sounds are fair with few scattered crackles in the bases. No wheezes. CARDIOVASCULAR: Normal S1, S2. There is no murmur or gallop. There is no JVD. There is no carotid bruit. Pulses are 2+/4+ bilaterally. ABDOMEN: Soft, nontender, no organomegaly or masses felt. GENITOURINARY: Deferred. RECTAL: Deferred. EXTREMITIES: There is trace edema bilaterally. No cyanosis or clubbing. LABORATORY DATA: Portable chest x-ray shows persistent bilateral interstitial infiltrates. There are no significant changes from prior chest x-rays on admission. Echocardiogram performed on 06/18/2017 showed normal LV function, mild mitral regurgitation, mild diastolic dysfunction. Pulmonary artery pressure measuring 46 mmHg, otherwise unremarkable. Electrolytes: Sodium 140, potassium , chloride 106, CO2 of 25, BUN 51, creatinine is 2.6. WBC 7900, hemoglobin 8.3, platelets are normal. IMPRESSION: 1. Persistent dyspnea, episodic bronchospasm in this 82-year-old -[place] female. She was initially admitted with chronic cellulitis involving both lower extremities. She is felt to have acute on chronic diastolic heart failure with chest x-ray showing bilateral interstitial infiltrates. The patient likely has ongoing heart failure. The persistence of infiltrates might suggest acute lung injury related to sepsis due to cellulitis. Her episodic bronchospasm maybe related to airway edema; however, with a history of tobacco use, cannot rule out component of chronic obstructive pulmonary disease. 2. Persistent infiltrates, possible acute lung injury. 3. Acute on chronic diastolic heart failure. 4. Chronic venous stasis ulcers, cellulitis. 5. Diabetes mellitus type 2. 6. Hypertension. 7. Hyperlipidemia. 8. Peripheral artery disease. 9. Chronic kidney disease. RECOMMENDATIONS: We will try a course of corticosteroids, bronchodilators. [address] [address] CONSULTATION Name: BARRETT MORILLO Room #: 442-P [facility] IN M.R.#: [id number] Admission: 06/12/17 Attend Phys: Garrett La MD Discharge: Date of : 34 Report #: [id number] Continue O2, keep saturation 90%. DVT and GI prophylaxis will be addressed. We will also followup CT chest to define underlying infiltrates. Note that patient had a chest CT earlier, which was grossly unremarkable. Thank you for this consultation. <ELECTRONICALLY SIGNED> By: John Zepeda MD 06/22/17 1553 1252 1453 John Zepeda MD /nt
--- NOTE | ~2017-06-12 | O ---
[facility] [place] [address] OPERATIVE REPORT Name: BARRETT MORILLO Room #: 442-P [facility] IN M.R.#: [id number] Admission: 06/12/17 Attend Phys: Garrett La MD Discharge: Date of : 34 Report #: [id number] THIS REPORT FOR: //name// CC: Garrett La DATE OF SERVICE: 06/14/2017 PREOPERATIVE DIAGNOSES: 1. Chronic bilateral lower extremity venous stasis ulcerations. 2. Severe peripheral vascular disease. 3. Diabetes mellitus. 4. Severe protein-calorie malnutrition. 5. Generalized debility. POSTOPERATIVE DIAGNOSES: 1. Chronic bilateral lower extremity venous stasis ulcerations. 2. Severe peripheral vascular disease. 3. Diabetes mellitus. 4. Severe protein-calorie malnutrition. 5. Generalized debility. PROCEDURES PERFORMED: 1. Excisional debridement of skin, subcutaneous tissue, muscle and bone of the left lower extremity chronic venous stasis ulceration ultimately measuring 22 x 18 cm in dimension (396 square cm). Preoperative and postoperative wound measurements were similar as the overall dimensions of the wound did not change substantially. 2. Excisional debridement of skin, subcutaneous tissue, muscle and bone of a right lower extremity chronic venous stasis ulceration ultimately measuring 20 x 19 cm in dimension (380 square cm). Preoperative wound measurements were similar as the overall dimensions of the wound did not change substantially. 3. Total surface area of debrided wounds all to bone equal 776 square cm. SURGEON: Tracie Cook MD DOCTOR OSTEOPATHIC: JAMES Jones ANESTHESIA: General endotracheal anesthesia. ESTIMATED BLOOD LOSS: Minimal (less than 10 mL). COMPLICATIONS: None appreciated. SPECIMENS: 1. All excised tissue to pathology. 2. Culture swabs of the deep tissue after a thorough debridement, was sent to [address] [address] OPERATIVE REPORT Name: BARRETT MORILLO Room #: 442-P [facility] IN ..#: [id number] Admission: 06/12/17 Attend Phys: Garrett La MD Discharge: Date of : 34 Report #: [id number] microbiology for culture and sensitivity. INDICATIONS: The patient is an 82-year-old -[place] female with the above-mentioned medical issues who has dealt with chronic venous stasis ulcerations of the bilateral lower extremities for years. The patient has had worsening pain and erythema with exudative slough to her wounds and as such has been admitted for cellulitis, whereby infectious disease has her on an inpatient regimen of IV antibiotic therapy. The patient has been undergoing aggressive local wound care; however, there is a significant biofilm overlying all wounds with a waxy appearance and as such, indication was for debridement back to healthy vascularized tissue today using the assistance of the Misonix debridement tool. PROCEDURE: After explaining the risks, benefits and alternatives of the procedure with the patient in detail in the preoperative holding area and obtaining written consent, the patient was brought to the operating room and placed supine on the operating room table. After conducting a thorough timeout procedure, verifying correct patient and procedure, the patient was given general endotracheal anesthesia. After she was given her preoperative dose of antibiotics as she is already on an inpatient regimen of IV antibiotic therapy, which is in line with SCIP protocol. No SCDs were placed due to the location of the patient's bilateral lower extremity wounds. After circumferential prep of the feet to the mid thigh and draping appropriately, electrocautery was used to debride all nonviable tissue from the wounds. Misonix ultrasonic debridement tool was now used to remove all remaining biofilm and nonviable tissue carrying this down to healthy vascularized tissue throughout the bed of each wound bed. This was carried all the way down to bone as both the medial and lateral malleoli and the long bones of the lower leg were exposed at places. Misonix was used to remove all nonviable tissue and we had good vascularized tissue left behind with no remaining biofilm at this juncture. Hemostasis was assured with pressure and electrocautery when needed; however, this was used judiciously as we did not want to stem the flow of any blood supply to the wounds. Once pressure was held and hemostasis was assured, cultures were taken and sent off the field as specimen. All excised tissue was sent off the field; however, it was gelatinous and macerated throughout. A sterile Xeroform gauze, Adaptic, fluffs and loose Kerlix wraps were then applied to the wounds. At the end of the procedure, all instrument, needle, and sponge counts were correct. The patient tolerated the procedure without incident, was awakened in the operating room and transitioned to the recovery room in stable condition with no apparent complications. <ELECTRONICALLY SIGNED> By: Tracie Cook MD, FACS 06/18/17 0745 1738 [id number] Tracie Cook MD, FACS /nt
--- NOTE | ~2017-06-12 | HC ---
[facility] [place] [address] CONSULTATION Name: BARRETT MORILLO Room #: 442-P [facility] IN ..#: [id number] Admission: 06/12/17 Attend Phys: Garrett La MD Discharge: Date of : 33 Report #: [id number] THIS REPORT FOR: //name// CC: Garrett La DATE OF SERVICE: 06/13/2017 WOUND CARE CONSULTATION CHIEF COMPLAINT: Chronic ulcerations, bilateral lower extremities. HISTORY OF PRESENT ILLNESS: This is an elderly female who has been a long-standing patient of ours in the wound center for chronic venous leg ulcerations for several years. The patient recently started having increased amount of slough and necrotic tissue within the ulcerations that was unable to be removed at the bedside. The patient has now been admitted for IV antibiotics as well as an operating room debridement of these ulcerations and probable placement of an extracellular matrix. The patient states she has a typical ltht-tj-gxgtrvte pain in her ulcerations. The patient states she has had no fevers or chills. The patient states she has otherwise no other recent illnesses. The patient denies any other associated wounds at this time. PAST MEDICAL HISTORY: Significant for chronic venous stasis ulcerations of both lower extremities. The patient also has history of peripheral vascular disease in both lower extremities. The patient also has a history of iron-deficiency anemia, history of hypertension, hyperlipidemia, type 2 diabetes and coronary artery disease. CURRENT MEDICATIONS: Multiple. I reviewed the patient's medication list. DRUG ALLERGIES: PENICILLIN. SOCIAL HISTORY: The patient resides in an independent living apartment. Does not smoke or drink alcohol. FAMILY HISTORY: Not pertinent to current medical condition. REVIEW OF SYSTEMS: CONSTITUTIONAL: The patient denies fevers or chills. NEUROLOGIC: The patient complains of overall generalized weakness, but no isolated weakness in the arms or legs. EYES: No complaints. ENT: No complaints. CARDIAC: The patient denies chest pain or palpitations. She has chronic lower extremity edema. RESPIRATORY: The patient denies shortness of breath, cough or wheezes. [facility] [address] [place] [address] CONSULTATION Name: BARRETT MORILLO Room #: 442-P [facility] IN M.R.#: [id number] Admission: 06/12/17 Attend Phys: Garrett La MD Discharge: Date of : 33 Report #: [id number] GASTROINTESTINAL: The patient denies any nausea, vomiting or abdominal pain. GENITOURINARY: The patient denies urgency or frequency. MUSCULOSKELETAL: No complaints. SKIN: There are chronic ulcerations in bilateral lower extremities. PHYSICAL EXAMINATION: VITAL SIGNS: Temperature 37.4, pulse 84, respirations 16 and BP 180/73. GENERAL: This is an alert and oriented x 3, chronically ill-appearing female, who is in otherwise no distress. HEENT: Normocephalic, atraumatic. Mucous membranes are moist. Pupils are round. Sclerae white. NECK: Supple, nontender. LUNGS: Clear. HEART: Regular, without murmur. ABDOMEN: Soft, otherwise nontender. EXTREMITIES: The patient has 1+ edema in bilateral lower extremities with chronic ulcerations which are circumferential around both ankles, with associated yellowish slough and bcqj-mr-ebllzfaw odor from serosanguineous drainage. There is minimal necrotic tissue, but the ulcers themselves are nearly 100% slough covered. There is no undermining or tunneling. Susy-ulcers are with spen-vp-vhrfhpxc erythema, warmth and minimal tenderness. Distal pulses are 1+. Bilateral heels are intact. NEUROLOGIC: Cranial nerves 2-12 grossly intact. Motor and sensory grossly intact. LABORATORY DATA: White count 6.9, hemoglobin 8.7. BUN 27, creatinine 2.2. Albumin 2.3. WOUND CARE COURSE: I spoke at length with the patient. At this point in time, Dr. Cook has seen the patient on the Surgical Service and plans on doing a surgical debridement in the operating room and possible placement of PriMatrix extracellular matrix after the debridement. Right now, we will just use Xeroform over the open ulcerations and cover with Kerlix. IV antibiotics have been started by Dr. La. IMPRESSION: 1. Chronic ulcerations, circumferential, bilateral ankles, requiring surgical debridement. 2. Venous insufficiency with edema. 3. History of peripheral arterial disease. 4. Diabetes mellitus type 2. 5. Generalized debility. 6. Protein-calorie malnutrition - severe. Albumin 2.3. PLAN: Described at length as above. We will also try to maximize the patient's oral protein supplementation for healing as well as utilize [facility] and [address] [address] CONSULTATION Name: BARRETT MORILLO Room #: 442-P ADM IN M.R.#: [id number] Admission: 06/12/17 Attend Phys: Garrett La MD Discharge: Date of : 33 Report #: [id number] occupational therapy for strengthening. We will continue to follow the patient for wound care. <ELECTRONICALLY SIGNED> By: Jim Cano MD 06/19/17 1601 [id number] Jim Cano MD /nt
[~2017-06-12 15:12] MED LIST changes: -ENOXAPARIN30 MG/0.1 SUBQ; -HYDROCODONE-AP1 EAC6 PO; -LASIX 20 MG TAB20 MG PO; -NOVOLOG100 UNIT/1 SUBQ; -PREDNISONE 20 M20 M1 PO; -SOLU-MEDRO125 MG/23 IV PUSH; -TORSEMIDE20 MG PO; -TRAMADOL 50 MG50 MG PO; -TYLENOL EXTRA500 MG PO; -VANCOMYCIN HCL 11 G2 IV
[2017-06-12 15:49] VITALS: BP 185/84
[2017-06-12 19:56] LABS: HEMATOCRIT 28.7 % (37.0-47.0); HEMOGLOBIN 9.3 gm/dL (12.0-15.0); MCH 28.2 pg (26.0-34.0); MCHC 32.5 g/dL (28.0-37.0); MCV 86.9 fL (80.0-100.0); RBC 3.3 mil/uL (4.20-5.00); RDW 14.8 % (10.5-14.5)
[2017-06-12 20:08] LABS: CALCIUM 8.6 mg/dL (8.5-10.1); CREATININE 2.4 mg/dL (0.6-1.0)
[2017-06-12 20:17] VITALS: BP 167/65
[2017-06-13 00:44] LABS: URINE BILIRUBIN NEGATIVE (Negative); URINE BLOOD TRACE (Negative); URINE CLARITY CLEAR; URINE COLOR YELLOW; URINE GLUCOSE-RANDOM* NEGATIVE (Negative); URINE KETONES NEGATIVE (Negative); URINE LEUKOCYTES-REFLEX NEGATIVE (Negative); URINE NITRITE-REFLEX NEGATIVE (Negative); URINE PROTEIN (DIPSTICK) 2+ (Negative); URINE SPECIFIC GRAVITY 1.015 (1.005-1.035); URINE UROBILINOGEN 0.2 E.U./dl (0.2-1.0)
[2017-06-13 00:56] LABS: AMP/METHAMP Negative (Negative); BARBITURATES Negative (Negative); BENZODIAZEPINES Negative (Negative); COCAINE Negative (Negative); METHADONE Negative (Negative); OPIATES Negative (Negative); PCP Negative (Negative)
[2017-06-13 00:59] LABS: BACTERIA-REFLEX None Seen /HPF (None Seen); CASTS None Seen /LPF (None Seen); CRYSTALS None Seen /LPF (None Seen); MUCUS None Seen strn/LPF (None Seen); SQUAMOUS None Seen /LPF (0-3); URINE RBC None Seen /HPF (0-2); URINE WBC-REFLEX None Seen /HPF (0-5)
[2017-06-13 01:41] VITALS: BP 163/67
[2017-06-13 03:40] VITALS: BP 154/56
[2017-06-13 06:15] LABS: HEMATOCRIT 27.1 % (37.0-47.0); HEMOGLOBIN 8.7 gm/dL (12.0-15.0); MCH 28.1 pg (26.0-34.0); MCHC 32.3 g/dL (28.0-37.0); MCV 86.9 fL (80.0-100.0); RBC 3.12 mil/uL (4.20-5.00); RDW 14.9 % (10.5-14.5); WBC 6.9 thou/uL (4.0-11.0)
[2017-06-13 06:43] LABS: ALBUMIN 2.3 g/dL (3.4-5.0); CALCIUM 8.7 mg/dL (8.5-10.1); CREATININE 2.2 mg/dL (0.6-1.0); TOTAL BILIRUBIN 0.3 mg/dL (<0.1-1.0); TOTAL PROTEIN 6.5 g/dL (6.4-8.2)
[2017-06-13 08:00] VITALS: BP 180/73
[2017-06-13 15:45] VITALS: BP 131/51
[2017-06-13 19:26] VITALS: BP 143/53
[2017-06-14] VITALS (9 sets, daily range): BP systolic 132–175; BP diastolic 51–81
[2017-06-14 07:09] LABS: HEMATOCRIT 25.5 % (37.0-47.0); HEMOGLOBIN 8.1 gm/dL (12.0-15.0); MCH 27.7 pg (26.0-34.0); MCHC 31.7 g/dL (28.0-37.0); MCV 87.2 fL (80.0-100.0); RBC 2.93 mil/uL (4.20-5.00); RDW 15.2 % (10.5-14.5); WBC 4.6 thou/uL (4.0-11.0)
[2017-06-14 07:31] LABS: CALCIUM 8.2 mg/dL (8.5-10.1); CREATININE 2.2 mg/dL (0.6-1.0); POTASSIUM 4.1 mmol/L (3.5-5.1)
[2017-06-15 03:13] VITALS: BP 154/63
[2017-06-15 05:25] LABS: CALCIUM 8.4 mg/dL (8.5-10.1); CREATININE 2.1 mg/dL (0.6-1.0); POTASSIUM 4.1 mmol/L (3.5-5.1)
[2017-06-15 05:30] LABS: HEMATOCRIT 26.5 % (37.0-47.0); HEMOGLOBIN 8.4 gm/dL (12.0-15.0); MCH 28.2 pg (26.0-34.0); MCHC 31.8 g/dL (28.0-37.0); MCV 88.6 fL (80.0-100.0); RBC 2.99 mil/uL (4.20-5.00); RDW 15.4 % (10.5-14.5)
[2017-06-15 08:25] VITALS: BP 158/66
[2017-06-15 16:27] VITALS: BP 137/59
[2017-06-15 19:50] VITALS: BP 151/58
[2017-06-16] VITALS: BP 165/64
[2017-06-16 03:45] VITALS: BP 146/59
[2017-06-16 06:45] LABS: HEMATOCRIT 27.1 % (37.0-47.0); HEMOGLOBIN 8.4 gm/dL (12.0-15.0); MCHC 31.1 g/dL (28.0-37.0); MCV 90.2 fL (80.0-100.0); RDW 15.2 % (10.5-14.5); WBC 7.6 thou/uL (4.0-11.0)
[2017-06-16 06:59] LABS: CALCIUM 8.5 mg/dL (8.5-10.1); CREATININE 2.2 mg/dL (0.6-1.0); POTASSIUM 4.1 mmol/L (3.5-5.1)
[2017-06-16 08:00] VITALS: BP 153/70
[2017-06-16 15:56] VITALS: BP 175/61
[2017-06-16 18:31] VITALS: BP 183/77
[2017-06-16 20:13] VITALS: BP 194/84
[2017-06-17 00:16] VITALS: BP 170/81
[2017-06-17 04:36] VITALS: BP 155/57
[2017-06-17 05:30] LABS: HEMATOCRIT 24.9 % (37.0-47.0); MCH 28.4 pg (26.0-34.0); MCHC 32.3 g/dL (28.0-37.0); MCV 87.9 fL (80.0-100.0); RBC 2.83 mil/uL (4.20-5.00); RDW 14.7 % (10.5-14.5); WBC 7.7 thou/uL (4.0-11.0)
[2017-06-17 05:32] LABS: CALCIUM 8.6 mg/dL (8.5-10.1); CREATININE 2.4 mg/dL (0.6-1.0); POTASSIUM 3.7 mmol/L (3.5-5.1)
[2017-06-17 08:00] VITALS: BP 172/63
[2017-06-17 16:00] VITALS: BP 137/52
[2017-06-17 20:43] VITALS: BP 146/56
[2017-06-18 03:56] VITALS: BP 153/61
[2017-06-18 08:00] VITALS: BP 155/62
[2017-06-18 09:16] LABS: HEMATOCRIT 24.1 % (37.0-47.0); HEMOGLOBIN 7.8 gm/dL (12.0-15.0); MCH 28.1 pg (26.0-34.0); MCHC 32.4 g/dL (28.0-37.0); MCV 86.8 fL (80.0-100.0); RBC 2.78 mil/uL (4.20-5.00); WBC 7.8 thou/uL (4.0-11.0)
[2017-06-18 09:24] LABS: CREATININE 2.4 mg/dL (0.6-1.0)
[2017-06-18 16:00] VITALS: BP 159/64
[2017-06-18 19:44] VITALS: BP 145/60
[2017-06-19 03:45] VITALS: BP 164/62
[2017-06-19 05:29] LABS: CALCIUM 8.7 mg/dL (8.5-10.1); CREATININE 2.5 mg/dL (0.6-1.0); POTASSIUM 4.1 mmol/L (3.5-5.1)
[2017-06-19 06:50] LABS: HEMATOCRIT 24.9 % (37.0-47.0); MCH 28.3 pg (26.0-34.0); MCHC 32.3 g/dL (28.0-37.0); MCV 87.4 fL (80.0-100.0); RBC 2.84 mil/uL (4.20-5.00); RDW 15.3 % (10.5-14.5); WBC 6.7 thou/uL (4.0-11.0)
[2017-06-19 09:23] VITALS: BP 162/54
[2017-06-19 15:40] VITALS: BP 156/61
[2017-06-19 20:11] VITALS: BP 170/63
[2017-06-20 03:12] VITALS: BP 148/52
[2017-06-20 05:48] LABS: CALCIUM 8.2 mg/dL (8.5-10.1); CREATININE 2.7 mg/dL (0.6-1.0); POTASSIUM 3.7 mmol/L (3.5-5.1)
[2017-06-20 08:00] VITALS: BP 166/58
[2017-06-20 16:00] VITALS: BP 163/55
[2017-06-20 19:33] VITALS: BP 153/55
[2017-06-21 04:10] VITALS: BP 150/56
[2017-06-21 07:32] LABS: HEMATOCRIT 25.6 % (37.0-47.0); HEMOGLOBIN 8.2 gm/dL (12.0-15.0); MCH 28.1 pg (26.0-34.0); MCHC 32.2 g/dL (28.0-37.0); MCV 87.4 fL (80.0-100.0); RBC 2.93 mil/uL (4.20-5.00); RDW 14.7 % (10.5-14.5); WBC 6.1 thou/uL (4.0-11.0)
[2017-06-21 07:47] LABS: CALCIUM 8.5 mg/dL (8.5-10.1); CREATININE 2.6 mg/dL (0.6-1.0); POTASSIUM 3.7 mmol/L (3.5-5.1)
[2017-06-21 08:44] VITALS: BP 160/57
[2017-06-21 16:18] VITALS: BP 144/51
[2017-06-21 19:40] VITALS: BP 155/56
[2017-06-22 03:14] LABS: HEMATOCRIT 25.8 % (37.0-47.0); HEMOGLOBIN 8.3 gm/dL (12.0-15.0); MCH 28.2 pg (26.0-34.0); MCHC 32.1 g/dL (28.0-37.0); MCV 87.8 fL (80.0-100.0); RBC 2.93 mil/uL (4.20-5.00); RDW 14.5 % (10.5-14.5); WBC 7.9 thou/uL (4.0-11.0)
[2017-06-22 03:22] LABS: CALCIUM 8.4 mg/dL (8.5-10.1); CREATININE 2.6 mg/dL (0.6-1.0); POTASSIUM 4.2 mmol/L (3.5-5.1)
[2017-06-22 03:44] VITALS: BP 182/60
[2017-06-22 08:00] VITALS: BP 150/63
[2017-06-22 08:30] VITALS: BP 155/76
[2017-06-22 20:45] VITALS: BP 137/57
[2017-06-23 04:18] VITALS: BP 134/58
[2017-06-23 06:12] LABS: HEMATOCRIT 24.4 % (37.0-47.0); HEMOGLOBIN 7.7 gm/dL (12.0-15.0); MCH 27.8 pg (26.0-34.0); MCHC 31.5 g/dL (28.0-37.0); MCV 88.3 fL (80.0-100.0); RBC 2.77 mil/uL (4.20-5.00); RDW 15.4 % (10.5-14.5); WBC 8.8 thou/uL (4.0-11.0)
[2017-06-23 06:23] LABS: CALCIUM 7.7 mg/dL (8.5-10.1); CREATININE 2.9 mg/dL (0.6-1.0); POTASSIUM 4.3 mmol/L (3.5-5.1)
[2017-06-23 09:14] VITALS: BP 142/61
[2017-06-23 17:19] VITALS: BP 122/47
[2017-06-23 19:56] VITALS: BP 115/44
[2017-06-24 03:40] LABS: HEMATOCRIT 23.5 % (37.0-47.0); HEMOGLOBIN 7.5 gm/dL (12.0-15.0); MCH 28.3 pg (26.0-34.0); MCHC 32.1 g/dL (28.0-37.0); MCV 88.3 fL (80.0-100.0); RBC 2.66 mil/uL (4.20-5.00); WBC 7.5 thou/uL (4.0-11.0)
[2017-06-24 03:59] LABS: CALCIUM 7.3 mg/dL (8.5-10.1); CREATININE 3.6 mg/dL (0.6-1.0); POTASSIUM 4.3 mmol/L (3.5-5.1)
[2017-06-24 04:18] VITALS: BP 124/48
[2017-06-24 08:00] VITALS: BP 135/54
[2017-06-24 16:00] VITALS: BP 134/55
[2017-06-24 17:48] LABS: HEMATOCRIT 26.9 % (37.0-47.0); HEMOGLOBIN 8.6 gm/dL (12.0-15.0); MCV 87.5 fL (80.0-100.0); RBC 3.07 mil/uL (4.20-5.00); RDW 15.2 % (10.5-14.5); WBC 8.4 thou/uL (4.0-11.0)
[2017-06-24 17:59] LABS: ALBUMIN 2.2 g/dL (3.4-5.0); CALCIUM 7.4 mg/dL (8.5-10.1); CREATININE 3.7 mg/dL (0.6-1.0)
[2017-06-24 20:52] VITALS: BP 137/53
[2017-06-25 05:50] VITALS: BP 140/58
[2017-06-25 06:15] LABS: URINE BILIRUBIN NEGATIVE (Negative); URINE BLOOD 2+ (Negative); URINE CLARITY CLEAR; URINE COLOR YELLOW; URINE GLUCOSE-RANDOM* NEGATIVE (Negative); URINE KETONES NEGATIVE (Negative); URINE LEUKOCYTES 1+ (Negative); URINE NITRITE NEGATIVE (Negative); URINE PROTEIN (DIPSTICK) 2+ (Negative); URINE SPECIFIC GRAVITY 1.025 (1.005-1.035); URINE UROBILINOGEN 0.2 E.U./dl (0.2-1.0)
[2017-06-25 06:17] LABS: ALBUMIN 2.2 g/dL (3.4-5.0); CALCIUM 7.5 mg/dL (8.5-10.1); CREATININE 3.5 mg/dL (0.6-1.0); PHOSPHORUS 4.4 mg/dL (2.5-4.9); POTASSIUM 4.1 mmol/L (3.5-5.1)
[2017-06-25 06:18] LABS: URINE POTASSIUM-RANDOM* 30.6 mmol/L
[2017-06-25 07:52] LABS: CASTS None Seen /LPF (None Seen); CRYSTALS None Seen /LPF (None Seen); SQUAMOUS 0-3 Few /LPF (0-3); URINE WBC 6-15 Few /HPF (0-5)
[2017-06-25 07:53] LABS: URINE RBC 3-10 Few /HPF (0-2)
[2017-06-25 07:54] LABS: YEAST Present (None Seen)
[2017-06-25 08:37] VITALS: BP 137/57
[2017-06-25 16:50] VITALS: BP 130/48
[2017-06-25 21:09] VITALS: BP 131/51
[2017-06-26 04:22] VITALS: BP 136/54
[2017-06-26 06:31] LABS: ALBUMIN 2.1 g/dL (3.4-5.0); CALCIUM 7.2 mg/dL (8.5-10.1); CREATININE 3.3 mg/dL (0.6-1.0); PHOSPHORUS 4.8 mg/dL (2.5-4.9); POTASSIUM 4.5 mmol/L (3.5-5.1)
[2017-06-26 07:46] VITALS: BP 139/57
[2017-06-26 15:50] VITALS: BP 133/45
[2017-06-26 20:30] VITALS: BP 132/46
[2017-06-27 04:05] VITALS: BP 152/64
[2017-06-27 07:04] LABS: ALBUMIN 2.2 g/dL (3.4-5.0); CALCIUM 7.5 mg/dL (8.5-10.1); CREATININE 3.3 mg/dL (0.6-1.0); PHOSPHORUS 4.7 mg/dL (2.5-4.9); POTASSIUM 4.4 mmol/L (3.5-5.1)
[2017-06-27 09:00] VITALS: BP 140/63
[2017-06-27 16:16] VITALS: BP 136/52
[2017-06-27 20:13] VITALS: BP 146/54
[2017-06-28 03:54] VITALS: BP 167/69
[2017-06-28 05:32] LABS: ALBUMIN 2.2 g/dL (3.4-5.0); CALCIUM 7.5 mg/dL (8.5-10.1); CREATININE 2.9 mg/dL (0.6-1.0); PHOSPHORUS 4.4 mg/dL (2.5-4.9); POTASSIUM 4.6 mmol/L (3.5-5.1)
[2017-06-28 08:33] VITALS: BP 151/58
[2017-06-28 16:36] VITALS: BP 156/48
[2017-06-28 20:10] VITALS: BP 169/66
[2017-06-29 04:53] VITALS: BP 165/63
[2017-06-29 05:58] LABS: HEMATOCRIT 26.7 % (37.0-47.0); HEMOGLOBIN 8.5 gm/dL (12.0-15.0); MCH 27.7 pg (26.0-34.0); MCHC 31.9 g/dL (28.0-37.0); MCV 86.8 fL (80.0-100.0); RBC 3.07 mil/uL (4.20-5.00); RDW 15.6 % (10.5-14.5); WBC 11.3 thou/uL (4.0-11.0)
[2017-06-29 06:15] LABS: ALBUMIN 2.4 g/dL (3.4-5.0); CREATININE 2.6 mg/dL (0.6-1.0); PHOSPHORUS 4.4 mg/dL (2.5-4.9); POTASSIUM 4.5 mmol/L (3.5-5.1)
[2017-06-29 08:00] VITALS: BP 171/70
[2017-06-29] MEDS ORDERED: TRAMADOL 50 MG50 MG PO (10:33)
[2017-06-29] MEDS ORDERED: HYDROCODONE-AP1 EAC6 PO (10:33)
[2017-06-29] MEDS ORDERED: DUONEB 2.5-0.5 M3 ML INH ×2 (10:33)
[2017-06-29] MEDS ORDERED: ENOXAPARIN30 MG/0.1 SUBQ (10:33)
[2017-06-29] MEDS ORDERED: TYLENOL EXTRA500 MG PO (10:34)
[2017-06-29] MEDS ORDERED: SOLU-MEDRO125 MG/23 IV PUSH (10:40)
[2017-06-29] MEDS ORDERED: LASIX 20 MG TAB20 MG PO (10:40)
[2017-06-29] MEDS ORDERED: CEPACOL SORE T1 EAC7 PO (10:40)
[2017-06-29] MEDS ORDERED: NOVOLOG100 UNIT/1 SUBQ (10:40)
[2017-06-29 16:00] VITALS: BP 139/52
[2017-06-29 21:23] VITALS: BP 157/61
[2017-06-30 03:54] VITALS: BP 175/68
[2017-06-30 06:16] LABS: ALBUMIN 2.5 g/dL (3.4-5.0); CALCIUM 8.2 mg/dL (8.5-10.1); CREATININE 2.4 mg/dL (0.6-1.0); PHOSPHORUS 4.2 mg/dL (2.5-4.9); POTASSIUM 4.6 mmol/L (3.5-5.1)
[2017-06-30 06:47] LABS: HEMATOCRIT 26.1 % (37.0-47.0); HEMOGLOBIN 8.7 gm/dL (12.0-15.0); MCH 29.2 pg (26.0-34.0); MCHC 33.2 g/dL (28.0-37.0); RBC 2.96 mil/uL (4.20-5.00); RDW 15.7 % (10.5-14.5); WBC 10.4 thou/uL (4.0-11.0)
[2017-06-30 07:33] VITALS: BP 169/65
[2017-06-30 15:45] VITALS: BP 150/55
[2017-06-30 21:04] VITALS: BP 160/62
[2017-07-01 04:49] VITALS: BP 168/66
[2017-07-01 08:00] VITALS: BP 183/74
[2017-07-01 16:00] VITALS: BP 165/70
[2017-07-01 19:37] VITALS: BP 160/55
[2017-07-02 03:44] VITALS: BP 169/57
[2017-07-02 06:34] LABS: HEMATOCRIT 26.3 % (37.0-47.0); HEMOGLOBIN 8.6 gm/dL (12.0-15.0); MCH 28.6 pg (26.0-34.0); MCHC 32.8 g/dL (28.0-37.0); MCV 87.1 fL (80.0-100.0); RBC 3.02 mil/uL (4.20-5.00); RDW 16.1 % (10.5-14.5)
[2017-07-02 06:48] LABS: ALBUMIN 2.5 g/dL (3.4-5.0); CREATININE 2.5 mg/dL (0.6-1.0); PHOSPHORUS 3.9 mg/dL (2.5-4.9); POTASSIUM 4.5 mmol/L (3.5-5.1)
[2017-07-02 07:10] VITALS: BP 172/72
[2017-07-02 09:57] LABS: URINE BILIRUBIN NEGATIVE (Negative); URINE BLOOD TRACE (Negative); URINE CLARITY CLEAR; URINE COLOR YELLOW; URINE GLUCOSE-RANDOM* NEGATIVE (Negative); URINE KETONES NEGATIVE (Negative); URINE NITRITE-REFLEX NEGATIVE (Negative); URINE PROTEIN (DIPSTICK) 1+ (Negative); URINE UROBILINOGEN 0.2 E.U./dl (0.2-1.0)
[2017-07-02 09:58] LABS: URINE LEUKOCYTES-REFLEX 1+ (Negative)
[2017-07-02 10:27] LABS: CASTS None Seen /LPF (None Seen); CRYSTALS None Seen /LPF (None Seen); SQUAMOUS 4-10 Moderate /LPF (0-3); URINE WBC-REFLEX >25 Many /HPF (0-5)
[2017-07-02 10:28] LABS: BACTERIA-REFLEX >30 Many /HPF (None Seen); URINE RBC 0-2 Rare /HPF (0-2)
[2017-07-02 16:15] VITALS: BP 151/61
[2017-07-02 19:09] VITALS: BP 148/53
[2017-07-03 04:03] VITALS: BP 187/69
[2017-07-03 06:16] LABS: ALBUMIN 2.8 g/dL (3.4-5.0); CALCIUM 8.1 mg/dL (8.5-10.1); CREATININE 2.4 mg/dL (0.6-1.0); PHOSPHORUS 3.8 mg/dL (2.5-4.9); POTASSIUM 4.2 mmol/L (3.5-5.1)
[2017-07-03 08:53] VITALS: BP 187/73
[2017-07-03 15:21] VITALS: BP 150/56
[2017-07-03] MEDS ORDERED: TORSEMIDE20 MG PO (15:36)
[2017-07-03] MEDS ORDERED: VANCOMYCIN HCL 11 G2 IV (15:39)
[2017-07-03] MEDS ORDERED: PREDNISONE 20 M20 M1 PO (15:39)
== END 2017-07-03 17:47 | DRG 579 ==
LOC: 4S 15:12 → 4W 06-24 12:19
PROVIDERS: Hospitalist; Internal Medicine; Internal Medicine Cardiovascular Disease; Internal Medicine Nephrology; Internal Medicine Pulmonary Disease; Surgery
DX: L03.115 Cellulitis of right lower limb (principal); E43 Unspecified severe protein-calorie malnutrition; I50.33 Acute on chronic diastolic (congestive) heart failure; J96.01 Acute respiratory failure with hypoxia; J18.9 Pneumonia, unspecified organism; N17.9 Acute kidney failure, unspecified; L97.929 Non-pressure chronic ulcer of unspecified part of left lower leg with unspecified severity; L97.919 Non-pressure chronic ulcer of unspecified part of right lower leg with unspecified severity; I13.0 Hypertensive heart and chronic kidney disease with heart failure and stage 1 through stage 4 chronic kidney disease, or unspecified chronic kidney disease; J44.0 Chronic obstructive pulmonary disease with (acute) lower respiratory infection; N18.4 Chronic kidney disease, stage 4 (severe); L03.116 Cellulitis of left lower limb; Z66 Do not resuscitate; K57.90 Diverticulosis of intestine, part unspecified, without perforation or abscess without bleeding; I87.2 Venous insufficiency (chronic) (peripheral); E11.51 Type 2 diabetes mellitus with diabetic peripheral angiopathy without gangrene; E78.5 Hyperlipidemia, unspecified; E11.22 Type 2 diabetes mellitus with diabetic chronic kidney disease; I25.10 Atherosclerotic heart disease of native coronary artery without angina pectoris; E03.9 Hypothyroidism, unspecified; K21.9 Gastro-esophageal reflux disease without esophagitis; D50.9 Iron deficiency anemia, unspecified; E87.70 Fluid overload, unspecified; D63.8 Anemia in other chronic diseases classified elsewhere; Z91.040 Latex allergy status; Z88.0 Allergy status to penicillin; Z68.27 Body mass index [BMI] 27.0-27.9, adult
CPT/HCPCS: 10045; 10100; 27000; 50010; 50101; 50386; 50403; 51412; 53353; 53354; 54109; 56524; 62110; 62900; 64037; 70005